=== PATIENT | male | born 1965 | race Caucasian/White ===

== ENCOUNTER → 2016-11-25 | Outpatient (CLI) | payer BC ==
[~2016-11-25] MED LIST: ATOR-22 PO; BUSP5TAB59 PO; LOSA100T65 PO; MULTTAB58 PO; OMEGCAP2 PO; OXYC-57 PO; PANT40TA PO
--- NOTE | 2016-11-25 10:10 | DIAGNOSTIC IMAGING REPORT ---
RIGHT SHOULDER MIN 2 VIEWS CLINICAL HISTORY: Right shoulder pain. Trauma. COMPARISON: None. DISCUSSION: No fractures or dislocations are visualized. There are minor degenerative changes within the AC joint. IMPRESSION: No fractures or dislocations identified. Electronically signed by: Jason Rosas M.D. 11/25/2016 10:08 AM
== END | disposition home or self-care (01) ==
LOC: C.RDSM 08:35
PROVIDERS: ATTEND Family Medicine
DX: M25.511 Pain in right shoulder (principal)

== ENCOUNTER → 2016-11-25 | Outpatient (CLI) | payer BC ==
--- NOTE | 2016-11-25 11:06 | DIAGNOSTIC IMAGING REPORT ---
ORBIT RADIOGRAPHS 3 VIEWS HISTORY: pre-MRI screening. COMPARISON: None. FINDINGS: There are no radiopaque foreign bodies identified within the orbits. Punctate density overlying the left maxillary sinus and the frontal view and anterior to the central incisors on the lateral view favors artifact on the film. IMPRESSION: No radiopaque foreign bodies identified within the orbits. Electronically signed by: Billy Wheeler M.D. 11/25/2016 11:04 AM
--- NOTE | 2016-11-25 12:09 | DIAGNOSTIC IMAGING REPORT ---
MRI OF THE RIGHT SHOULDER WITHOUT CONTRAST CLINICAL HISTORY: Right shoulder injury status post fall. Evaluate for rotator cuff tear. COMPARISON STUDY: Right shoulder radiographs November 25, 2016. TECHNIQUE: Utilizing a 1.5 Veronica magnet and dedicated coil, multiplanar, multiecho imaging of the right shoulder was performed without intravenous or intra-articular contrast. FINDINGS: Alignment of the right shoulder is anatomic. No fracture or suspicious marrow replacement is present. There is moderate arthritis of the acromioclavicular joint and mild arthritis of the glenohumeral joint. There is a trace joint effusion. There is fluid within the subacromial/subdeltoid bursa. There is a large full-thickness tear of the distal mid to anterior fibers of supraspinatus. The tendon is retracted 1.7 cm. There is no significant muscular atrophy. In addition, there is tendinopathy of supraspinatus with a more proximal partial thickness tear located 3.3 cm proximal to the insertion. There is tendinopathy of infraspinatus with suspected partial thickness articular surface tear of distal infraspinatus. Teres minor is intact. Subscapularis is suboptimally assessed on this exam but there is a suspected partial thickness tear of subscapularis. Long head of the biceps tendon is intact. The glenoid labrum is suboptimally assessed on this exam. The posterior superior glenoid labrum is truncated. IMPRESSION: 1. Large full-thickness tear of distal supraspinatus with 1.7 cm of tendon retraction. In addition, there is tendinopathy with partial-thickness tear of the more proximal supraspinatus. 2. Suspected partial thickness tears of distal infraspinatus and subscapularis. 3. Truncated posterior superior labrum which likely reflects a chronic tear. 4. Moderate AC joint arthritis. Electronically signed by: Srini Steel M.D. 11/25/2016 12:08 PM
== END | disposition home or self-care (01) ==
LOC: C.RADBC 10:41
PROVIDERS: ATTEND Family Medicine
DX: Z13.9 Encounter for screening, unspecified (principal); S46.011A Strain of muscle(s) and tendon(s) of the rotator cuff of right shoulder, initial encounter; S43.431A Superior glenoid labrum lesion of right shoulder, initial encounter; X58.XXXA Exposure to other specified factors, initial encounter; M19.011 Primary osteoarthritis, right shoulder

== ENCOUNTER → 2016-12-03 | Day surgery (SDC) | payer BC ==
[2016-11-27 12:36] LABS: BASO % 0.3 %; BASO ABS # 0.03 K/uL (0-0.2); COMPLETE YES; EOS % 1.3 %; HEMATOCRIT 41.6 % (42-52); IG% 0.1 %; LYMPH % 17.4 %; LYMPH ABS # 1.56 K/uL (1.2-3.4); MEAN CELL VOLUME 90.2 fL (80-100); MEAN CORPUSCULAR HEMOGLOBIN 31.5 pg (25-34); MEAN CORPUSCULAR HGB CONC 34.9 g/dl (32-36); MEAN PLATELET VOLUME 11.2 fL (7.4-10.4); MONO % 8.6 %; NEUT % 72.3 %; PLATELET COUNT 178 K/uL (130-400); RED BLOOD COUNT 4.61 M/uL (4.7-6.1); WHITE BLOOD COUNT 8.95 K/uL (4.8-10.8)
[2016-12-01 08:02] VITALS: Ht 170.2 cm; Wt 86.4 kg
[~2016-12-03] VITALS: Ht 170.2 cm; Wt 86.4 kg
[~2016-12-03] MED LIST changes: +ACETAMINOPHEN IV 100 ML IV PRN; +ACETAMINOPHEN/CODEINE 300/30MG TAB PO PRN; +ATROPINE SULFATE 0.1 MG/ML 5ML SYR IV PRN; +CEFAZOLIN 2000 MG/60 ML D5W IV SCH; +DEXAMETHASONE SOD INJ 4 MG/ML VIAL IV PRN; +DEXAMETHASONE SOD INJ 4 MG/ML VIAL ONE; +EpHEDrine SULFATE INJ 50 MG/ML AMP IV PRN; +EpHEDrine SULFATE INJ 50 MG/ML AMP ONE; +FENTANYL CITRATE INJ 50 MCG/1 ML 2 ML VIAL IV PRN; +FENTANYL CITRATE INJ 50 MCG/1 ML 2 ML VIAL ONE; +GLYCOPYRROLATE INJ 0.2 MG/ML VIAL ONE; +KETOROLAC TROMETHAMINE 30 MG/ML VIAL IV PRN; +KETOROLAC TROMETHAMINE 30 MG/ML VIAL IV. PRN; +LABETALOL HCL IV 5 MG/ML 20ML IV PRN; +LABETALOL HCL IV 5 MG/ML 20ML ONE; +LACTATED RINGER'S 1000ML 1,000 ML IV SCH; +LIDOCAINE HCL 1% MPF 2 ML VIAL ONE; +LIDOCAINE HCL 2% 2 ML VIAL (20MG/ML) ONE; +LIDOCAINE/EPINEPHRINE 1% INJ 50 ML VIAL ONE; +METOCLOPRAMIDE HCL INJ 5 MG/ML 2 ML VIAL IV PRN; +MIDAZOLAM HCL 1 MG/ML 2ML VIAL ONE; +MoRPHine SULFATE 10 MG/ML CARP/VIAL IV PRN; +MoRPHine SULFATE 2 MG/ML CARP IV PRN; +MoRPHine SULFATE 4 MG/ML 1 ML CARP\\VIAL IV PRN; +NEOSTIGMINE METHYLSULFATE 5 MG/5 ML SYR ONE; +ONDANSETRON INJ 2 MG/ML 2 ML VIAL IV PRN; +ONDANSETRON INJ 2 MG/ML 2 ML VIAL ONE; +OXYCODONE/ACETAMINOPHEN 5-325 TAB PO PRN; +PHENYLEPHRINE 100MCG/ML 5ML SYR IV PRN; +PHENYLEPHRINE HCL INJ 10 MG/ML VIAL ONE; +PROPOFOL IV EMULSION 10 MG/ML 20 ML VIAL IV ONE; +ROCURONIUM BROMIDE 10 MG/ML 5 ML VIAL ONE; +ROPIVACAINE 0.5% 5 MG/ML 30 ML VIAL ONE; +SODIUM CHLORIDE 0.9% 1000ML 1,000 ML IV SCH; +SODIUM CHLORIDE 0.9% INJ 10 ML VIAL ONE
--- NOTE | 2016-12-03 06:43 | History & Physical Bridge Note ---
H&P Re-Evaluation Bridge Note: I have examined the patient, reviewed the History & Physical and in the interval since the performance of the History & Physical I have noted the following changes of clinical significance: No changes noted
--- NOTE | 2016-12-03 12:02 | [facility] Post Operative Brief Note ---
Immediate Operative Summary Operative Date Dec 03, 2016. Pre-Operative Diagnosis Right Shoulder Rotator Cuff Tear Post-Operative Diagnosis Same Procedure(s) Performed Right Shoulder Arthroscopic Supraspinatous Repair, Decompression, Open Subscapularis Repair, Arthroscopic Acromioplasty, Open Coracoplasty Surgeon Dr Horowitz Grounds Crew Supervisor Surgeon(s) Dr Dora Tomas Estimated Blood Loss 25 mL Findings cuff tear Specimens None Drains 0 Anesthesia LMA with block Complication(s) None Disposition Recovery Room / PACU
--- NOTE | 2016-12-03 12:18 | Discharge Instructions-SurgCtr ---
Discharge Instructions Visit Reason for Visit: Right Shoulder Rotator Cuff Tear Discharge Discharge Diagnosis / Problem: Rotator Cuff Repair Discharge Goals Goal(s): Decrease discomfort, Improve function, Increase independence Medications Stopped Medications Name(s): Told to only take Protonix this am. Activity Recommendations Activity Limitations: per Instructions/Follow-up section Anesthesia . Post Anesthesia Instructions: If you have had General Anesthesia or IV Sedation: * Do not drive today. * Resume driving when surgeon permits. * Do not make important decisions or sign legal documents today. * Call surgeon for: 1. Temperature elevations greater than 101 degrees F. 2. Uncontrollable pain. 3. Excessive bleeding. 4. Persistent nausea and vomiting. 5. Medication intolerance (nausea, vomiting or rash). * For nausea and vomiting use only clear liquids such as: tea, soda, bouillon until nausea subsides, then gradually increase diet as tolerated. * If you have any concerns or questions, call your surgeon's office. If physician is unavailable and it is an emergency, call 911 or go to the nearest emergency room. . Instructions / Follow-Up Instructions / Follow-Up The following are instructions to follow after "Shoulder Surgery" including, Acromioplasty, Rotator Cuff Repair and Instability Surgery ACTIVITY RECOMMENDATIONS: * Minimize activity after surgery. * Keep arm in sling. * No excessive walking, jogging, sports or laboring. * Return to activity is individualized depending on the patient and type of surgery. * Driving is not permitted until at least your first post operative visit. Please ask your doctor when it is safe to resume driving. * Expect increased discomfort with increased activity. Continue to ice the shoulder as needed. SCHOOL/WORK RECOMMENDATIONS: * You may return to sedentary work or school when you are feeling more comfortable. This is usually 3-7 days after surgery. MEDICATIONS: * You will have a prescription for pain medication and an anti-inflammatory medication after surgery. * Use the pain medication for severe pain and the anti-inflammatory for less severe pain. Once the pain medication has run out, try to use the anti-inflammatory medication. If this is not effective, contact the office for assistance. * The pain medication may cause nausea, constipation and drowsiness. You should see how they affect you before driving or similar activity. * The anti-inflammatory medication may cause stomach upset and bleeding. If this occurs let your doctor know immediately . * Take a stool softener like Colace or a laxative like Senokot to prevent constipation. DIET: * Resume previous diet. SPECIAL CARE: ICE: You have the option of an ice cooler, gel packs or ice bags. * If you have an ice cooler, refer to the instructions for that device. The ice cooler may be used continuously. * If you do not have an ice cooler, you will need to use ice bags or gel packs. Do not apply ice directly to the skin. Use a thin dressing or brian shirt between the skin and ice bag. Apply ice for 20-30 minutes and repeat every 2-4 hours. This is especially important for the first 7-10 days after surgery. Once the pain improves, use ice as needed. ELEVATION: * You may be more comfortable sleeping in an upright position. Use the sling to elevate your arm. DRESSING: * Your dressing will be changed at your first therapy appointment approximately 4-5 days after surgery. Band-aids, tape strips or gauze may be applied. You may then change your dressing daily. * Reapply dressing followed by the EBIce cooling pad (if chosen) and then the sling. * Always wash your hands prior to touching the incision area. * Once the stitches are removed, you may leave the wound open to air or cover with gauze. * Expect some bloody drainage for the first few days after surgery. * Leave the tape strips, if present, in place for 5-7 days. * Band-aids and gauze may be changed daily. * There may be a gauze pad in your armpit area. This can be changed daily or replaced by a dry washcloth. SLING/BRACE: * You will need to use a sling or brace for 6 weeks after surgery. BATHING: * You may shower or sponge-bathe immediately after surgery. The post operative shoulder dressing is mostly water-tight. You may shower right over this dressing, but be reasonably careful not to get the gauze or incision wet. * Once the dressing has been changed on the fourth or fifth day after surgery, you may shower and get the incision wet. * Wash with regular soap and water. * Do not bathe (submerge the incision), soak, swim or use a hot tub until the incision is completely healed over with normal skin and the doctor has given the OK to proceed. * There is no need to apply any ointments, powders or salves to your incision. * Do not apply alcohol or hydrogen peroxide directly to the incision. * Diluted peroxide (50:50 mixture with sterile saline) may be used to clean dried blood from around the incision area. THERAPY: * You will begin therapy four or five days after surgery. * Organized therapy with the therapist is important for the first 2-4 months after surgery depending on the type of procedure. During that time you will attend therapy 1-3 times per week. * You will also need to do daily exercises for range of motion and strength as instructed. * Patients who have a Capsular Shift Procedure will need to abide by temporary range of motion limitations. * Patients having Rotator Cuff Surgery are not allowed to actively lift their arms until 4-6 weeks after surgery. * Please check with your doctor regarding appropriate motion restrictions. FOLLOW UP VISIT: * Follow up for PT on 12/07/2016 * Follow up with Dr. Horowitz on 12/15/16 Diet Recommendations Home Diet: no limitations, resume previous diet Procedures Procedures Performed: Right Shoulder Arthroscopic Supraspinatous Repair, Decompression, Open Subscapularis Repair, Arthroscopic Acromioplasty, Open Coracoplasty Pending Studies Studies pending at discharge: no Medical Emergencies . Who to Call and When: Medical Emergencies: If at any time you feel your situation is an emergency, please call 911 immediately. . Non-Emergent Contact Non-Emergency issues call your: Surgeon Call Non-Emergent contact if: you have a fever, your pain is not controlled, wound has increased drainage . . "Provider Documentation" section prepared by Rob Perez.
--- NOTE | 2016-12-03 12:49 | OPERATIVE REPORT ---
DATE OF OPERATION: 12/03/2016 PREOPERATIVE DIAGNOSIS: Supraspinatus tear, subscapularis tear of the right shoulder. POSTOPERATIVE DIAGNOSIS: Same. PROCEDURE PERFORMED: Arthroscopic acromioplasty and repair of supraspinatus tear, mini open coracoplasty, biceps tenodesis and subscapularis repair. SURGEON: Dr. Horowitz. RUG DRY ROOM ATTENDANT: Rob John, fellow. No PA available. ANESTHESIA: Laryngeal mask with interscalene block. INDICATIONS OF PROCEDURE: The patient is a 51-year-old male who is status post a fall resulting in the aforementioned injuries confirmed by MRI. He had difficulty lifting his arm, possibly due to pain. His deltoid appears to be functioning in terms of generating a contraction. He has normal arm sensation. Treatment options, risks and benefits were discussed and he elected to proceed with surgery. OPERATION AND FINDINGS: PROCEDURE IN DETAIL: Informed consent was obtained. The patient identified as Michael Reynolds. He identified the operative site as right shoulder. I marked it with my initials. A preop surgical time out performed. A preop dose of IV antibiotics was given. He was taken to the operating room, positioned supine on the operating room table. The interscalene block and anesthetic were administered. He was then positioned beach chair with neck held in neutral alignment. The torso was secured to the table. Kidney rests were utilized. The knees were flexed. The heels were padded. The tenet body positioner and Trimano arm salinas were utilized. The right upper extremity was examined then prepped and draped in the usual sterile fashion. DVT prophylaxis intraoperatively with foot pumps, postoperatively with early mobility. Prior to start of procedure, 1% lidocaine with epinephrine was injected into the portal sites and subacromial space. The exam under anesthesia showed full and equal range of motion and grade 2 laxity out the back and front, which was equal bilaterally. Posterior soft spot viewing portal followed by anterior mid glenoid working portal using the outside-in technique. Diagnostic arthroscopy was performed. The articular surface of the humeral head and glenoid were normal. There was some minor fraying on the inferior surface of the labrum but otherwise the labrum was intact. The biceps looked normal. The anterior and inferior ligaments looked normal. The posterior capsule and rotator cuff were intact. There were no loose bodies. The rotator interval was debrided and the upper border of the subscap was noted to be what looked to be visibly intact but on some simple debridement it was noted that there was likely full thickness tear of the upper 1 to 1.5 cm with a partial thickness complement present. There was a medium sized rotator cuff tear present full thickness of the supraspinatus extending back to the leading edge of the infraspinatus. Biceps tenotomy was performed and the stump was debrided. The scope was placed in subacromial space. There was hemorrhagic bursitis noted, which was thoroughly debrided. Additional anterolateral and direct lateral portals were inserted with 8 mm cannulas. The insertion site for the rotator cuff was prepared by abrading with a curette and shaver and also smoothing it off with a bur. The tear was noted to be about 20 to 23 mm in size. There was a longitudinal L-shaped component small posterior. The remainder was a shallow crescent. There was some delamination noted posterior. The rotator cuff was debrided. The greater tuberosity was prepared. I then inserted two 4.5 PEEK corkscrew anchors at the junction of the middle and anterior and middle and posterior aspects of the tear just lateral to the articular cartilage margin at about 30-40 degree angle. Then the scorpion was utilized to pass the stitches sequentially. Suture management was performed. I took care to imbricate the posterior longitudinal component. Horizontal mattress stitches were then inserted for a total of 4 sutures. The rotator cuff was reduced and not over tensioned and was brought slightly forward as well as lateral based upon the tear pattern. The sutures were then tied posterior to anterior in a tension free fashion using modified Lehigh knot backed up with reverse half inches on alternating posts yielding a secure repair. A double row repair was affected with a 5.5 mm SwiveLock anchor laterally. The undersurface of the acromion was denuded of soft tissue and a modified cutting block acromioplasty was performed removing 3-5 mm of anterior and lateral bone. There was some lateral overhang. The acromion was smoothed from back to front and from side to side. I then made a 6 cm incision utilizing the anterior arthroscopic portal extending this inferiorly. Blunt dissection was utilized for the subcutaneous tissues down to the level of the deltopectoral fascia. The deltopectoral interval was identified and divided in line with the incision with the cephalic vein being retracted laterally. A self-retaining retractor was inserted. The clavipectoral fascia was incised and the subdeltoid bursa was thoroughly debrided. I released a slight bit of the conjoined tendon laterally and also the coracoacromial ligament superiorly to expose the tip of the coracoid. Based upon the imaging it looked like the coracoid and humeral interval was narrowed and this may have contributed to the subscapularis tear. I resected about 3-4 mm of posterior and inferior coracoid bone to the point right get my finger in between this interval. I then beveled this with a rasp. The upper portion of the subscapularis was noted to be torn for a distance of 1 to 1.5 cm. This was full thickness up top but more distally it was partial thickness, which was converted to a full-thickness 1.5 cm tear. The remainder of the tendon was intact. Adhesions were sharply under direct visualization and bluntly with digital manipulation released on the anterior and posterior surface of the tendon. The middle glenohumeral ligament was released off of the tendon. The axillary nerve was identified. This improved mobility to allow repair. The tenotomized biceps tendon was identified and tensioned appropriately and prepared for repair. The leading border of the supraspinatus was noted. The anterior portion of the supraspinatus footprint, the upper portion of the bicipital groove and the subscapularis footprint were all excoriated with a rongeur and a curette. I then inserted two 4.5 PEEK corkscrew anchors, 1 at the upper border of the bicipital groove and 1 at about the mid portion of the subscapularis tendon. These were used to imbricate and repair the biceps tendon using a single stitch from each anchor. The remaining stitch from the upper anchor was utilized to imbricate the supraspinatus repair. These sutures were then tied. Another anchor was inserted into the footprint of the subscapularis and passed through in a horizontal mattress fashion for repair. The fascia over the biceps was closed and I did put one stitch between the subscapularis and supraspinatus yielding an excellent secure repair. There was good coverage throughout. Copious irrigation was performed. The arthroscopic portals were closed with 4-0 nylon. The deltotrapezial fascia was closed with running #1 Vicryl, the skin with 2-0 Vicryl and hubert on the skin. A soft sterile dressing was applied with an ABD in the armpit along with an UltraSling. The patient was awakened from anesthesia without difficulty and taken to recovery room in stable condition. There were no specimens or complications. Counts were correct at the end of case. Blood loss was 50 mL. At the conclusion of the operation, I spoke to patient's family and informed them of my findings. Postoperative instructions were given. Plan will be for passive range of motion of the shoulder and elbow for 6 weeks postoperatively according to my rotator cuff repair protocol. I attest to the content of the Intraoperative Record and any orders documented therein. Any exceptio ns are noted below.
--- NOTE | 2016-12-03 13:28 | Anesthesia Progress Nt - [facility] ---
Anesthesia Post Op Note Date & Time Dec 03, 2016 at 13:27 Vital Signs Pain Intensity: 0 Vital Signs Past 12 Hours Date Time Temp Pulse Resp B/P Pulse Ox O2 Delivery O2 Flow Rate FiO2 12/03/16 12:43 37 130 20 145/96 94 Room Air 0 12/03/16 12:40 126 23 95 12/03/16 12:40 127 23 12/03/16 12:38 147/88 12/03/16 12:35 109 21 98 12/03/16 12:35 109 21 12/03/16 12:34 108 21 12/03/16 12:34 108 21 98 12/03/16 12:33 137/87 12/03/16 12:29 115 22 96 12/03/16 12:29 115 22 12/03/16 12:28 140/88 12/03/16 12:24 107 20 12/03/16 12:24 106 20 99 12/03/16 12:23 140/92 12/03/16 12:23 36.8 106 20 140/92 98 Mask 3 12/03/16 12:19 100 21 99 12/03/16 12:19 100 21 12/03/16 12:18 139/85 12/03/16 12:14 98 21 12/03/16 12:14 99 21 100 12/03/16 12:13 135/86 12/03/16 12:09 92 22 12/03/16 12:09 93 22 100 12/03/16 12:08 93 22 12/03/16 12:08 93 22 140/86 100 12/03/16 12:03 95 26 146/88 100 12/03/16 12:03 96 26 12/03/16 12:00 36.6 97 24 154/94 99 Mask 8 12/03/16 11:58 154/94 12/03/16 07:03 92 13 100 12/03/16 07:03 92 13 12/03/16 07:02 104 11 140/92 100 12/03/16 07:02 104 11 12/03/16 06:58 151/98 12/03/16 06:57 99 18 99 12/03/16 06:57 99 18 12/03/16 06:53 154/101 12/03/16 06:43 36.7 99 16 156/93 97 Room Air Notes Mental Status: alert / awake / arousable, participated in evaluation Pt Amnestic to Procedure: Yes Nausea / Vomiting: adequately controlled Pain: adequately controlled Airway Patency, RR, SpO2: stable & adequate BP & HR: stable & adequate Hydration State: stable & adequate Anesthetic Complications: no major complications apparent
[2016-12-03 13:36] VITALS: TEMP 36.9
[2016-12-03 14:05] VITALS: BP 148/89; PULSE 109; O2SAT 94
--- NOTE | 2016-12-03 14:13 | [facility] Post Operative Brief Note ---
Immediate Operative Summary Operative Date Dec 03, 2016. Pre-Operative Diagnosis Right Shoulder Rotator Cuff Tear Post-Operative Diagnosis Same Procedure(s) Performed Right Shoulder Arthroscopic Supraspinatous Repair, Decompression, Open Subscapularis Repair, Arthroscopic Acromioplasty, Open Coracoplasty Surgeon Dr Horowitz Real Estate Attorney Surgeon(s) Dr Dora Tomas Estimated Blood Loss 25 mL Findings Supraspinatous and subscapular tears Specimens None Complication(s) None Disposition PCU
== END | disposition home or self-care (01) ==
LOC: X.SURG 06:07
PROVIDERS: ATTEND Physical Medicine & Rehabilitation Sports Medicine
DX: S46.011A Strain of muscle(s) and tendon(s) of the rotator cuff of right shoulder, initial encounter (principal); W19.XXXA Unspecified fall, initial encounter; M75.51 Bursitis of right shoulder; M75.01 Adhesive capsulitis of right shoulder

== ENCOUNTER → 2016-12-16 | Outpatient (CLI) | payer BC, OTHER ==
[~2016-12-16] MED LIST changes: -ACETAMINOPHEN IV 100 ML IV PRN; -ACETAMINOPHEN/CODEINE 300/30MG TAB PO PRN; -ATROPINE SULFATE 0.1 MG/ML 5ML SYR IV PRN; -CEFAZOLIN 2000 MG/60 ML D5W IV SCH; -DEXAMETHASONE SOD INJ 4 MG/ML VIAL IV PRN; -DEXAMETHASONE SOD INJ 4 MG/ML VIAL ONE; -EpHEDrine SULFATE INJ 50 MG/ML AMP IV PRN; -EpHEDrine SULFATE INJ 50 MG/ML AMP ONE; -FENTANYL CITRATE INJ 50 MCG/1 ML 2 ML VIAL IV PRN; -FENTANYL CITRATE INJ 50 MCG/1 ML 2 ML VIAL ONE; -GLYCOPYRROLATE INJ 0.2 MG/ML VIAL ONE; -KETOROLAC TROMETHAMINE 30 MG/ML VIAL IV PRN; -KETOROLAC TROMETHAMINE 30 MG/ML VIAL IV. PRN; -LABETALOL HCL IV 5 MG/ML 20ML IV PRN; -LABETALOL HCL IV 5 MG/ML 20ML ONE; -LACTATED RINGER'S 1000ML 1,000 ML IV SCH; -LIDOCAINE HCL 1% MPF 2 ML VIAL ONE; -LIDOCAINE HCL 2% 2 ML VIAL (20MG/ML) ONE; -LIDOCAINE/EPINEPHRINE 1% INJ 50 ML VIAL ONE; -METOCLOPRAMIDE HCL INJ 5 MG/ML 2 ML VIAL IV PRN; -MIDAZOLAM HCL 1 MG/ML 2ML VIAL ONE; -MoRPHine SULFATE 10 MG/ML CARP/VIAL IV PRN; -MoRPHine SULFATE 2 MG/ML CARP IV PRN; -MoRPHine SULFATE 4 MG/ML 1 ML CARP\\VIAL IV PRN; -NEOSTIGMINE METHYLSULFATE 5 MG/5 ML SYR ONE; -ONDANSETRON INJ 2 MG/ML 2 ML VIAL IV PRN; -ONDANSETRON INJ 2 MG/ML 2 ML VIAL ONE; -OXYCODONE/ACETAMINOPHEN 5-325 TAB PO PRN; -PHENYLEPHRINE 100MCG/ML 5ML SYR IV PRN; -PHENYLEPHRINE HCL INJ 10 MG/ML VIAL ONE; -PROPOFOL IV EMULSION 10 MG/ML 20 ML VIAL IV ONE; -ROCURONIUM BROMIDE 10 MG/ML 5 ML VIAL ONE; -ROPIVACAINE 0.5% 5 MG/ML 30 ML VIAL ONE; -SODIUM CHLORIDE 0.9% 1000ML 1,000 ML IV SCH; -SODIUM CHLORIDE 0.9% INJ 10 ML VIAL ONE
== END | disposition home or self-care (01) ==
LOC: C.RDSM 12:50
PROVIDERS: ATTEND Physical Medicine & Rehabilitation Sports Medicine
DX: M75.121 Complete rotator cuff tear or rupture of right shoulder, not specified as traumatic (principal)